=== PATIENT | female | born 1980 | race Hispanic/Latino ===

== ENCOUNTER 2021-10-02 09:13 | Outpatient (CLI) | payer OTHER ==
[2021-10-02] MEDS ORDERED: Iopamidol 370 76% 100 ML VIAL ONE (13:32)
== END 2021-10-02 09:14 | disposition home or self-care (01) ==
LOC: BICCT 09:13
PROVIDERS: ATTEND Registered Nurse Community Health
DX: R07.89 Other chest pain (principal)
CPT/HCPCS: 71275; Q9967